=== PATIENT | male | born 1975 | race Caucasian/White ===

== ENCOUNTER 2018-04-19 14:07 | Emergency (ER) | payer OTHER ==
[~2018-04-19] VITALS: Ht 180.3 cm; Wt 105.0 kg
[~2018-04-19 14:07] MED LIST: ALLO300T2 PO; AMIT100 PO; AMLO5 PO; ATOR40TA PO; CLON.5 PO; DICL75 PO; FLUT1SPR9; INDO50 PO; MAGN400T19 PO; REST30CA PO; SERT-132 PO; TOPA100T8 PO
[2018-04-19 14:21] VITALS: BP 130/102; PULSE 101; RESP 24; TEMP 99.2; O2SAT 98
--- NOTE | 2018-04-19 14:29 | PD ---
HPI Chief Complaint: Laceration/Skin Injury Time Seen by Provider: 14:10 Travel History International Travel<30 days: No Contact w/Intl Traveler<30days: No History of Present Illness HPI 43y male presents emergency department via [facility] for laceration to his left forearm that he self-inflicted just prior to arrival. He says that he cuts normally and he used a different knife today and did not mean to cut himself as deep as he did. Patient states that he is a cutter and frequently has self- inflicted wounds but denies any suicidal homicidal ideations. He denies any previous suicide attempts. He admits to history of PTSD and takes Paxil. In addition, he says he takes lovastatin and amlodipine on a daily basis. PFSH Past Medical History ADHD: Yes Bipolar Disorder: Yes Anxiety: Yes Depression: Yes Cardiovascular Problems: Yes High Cholesterol: Yes Chest Pain: Yes (ADMITTED [facility] 04/29-05/02/12) Diabetes: No Diminished Hearing: No Endocrine: Yes Gout: Yes Herniated Disk: Yes (lumbar spine) Hypertension: Yes Psychiatric: Yes Sleep Apnea: Yes Thyroid Disease: Yes (HYPOTHYROID) Social History Alcohol Use: Yes (alcoholic recovered) Tobacco Use: No Substance Use: Yes Allergies-Medications (Allergen,Severity, Reaction): Coded Allergies: No Known Allergies (Verified Adverse Reaction, Unknown, 04/19/18) Reported Meds & Prescriptions Reported Meds & Active Scripts Active Reported Lovastatin 40 Mg Tab 40 Mg PO DAILY Paroxetine (Paroxetine HCl) 30 Mg Tab 30 Mg PO DAILY Amlodipine (Amlodipine Besylate) 5 Mg Tab 5 Mg PO DAILY Review of Systems Except as stated in HPI: all other systems reviewed are Neg Physical Exam Narrative GENERAL: Well developed,, well-nourished, anxious SKIN: Focused skin assessment warm/dry. Left vqlhanprjo-2-7 cm laceration 5mm deep dried blood over clothes, hands, and legs. HEAD: Atraumatic. Normocephalic. EYES: Pupils equal and round. No scleral icterus. No injection or drainage. ENT: No nasal bleeding or discharge. Mucous membranes pink and moist. NECK: Trachea midline. No JVD. CARDIOVASCULAR: Regular rate and rhythm. No murmur appreciated. RESPIRATORY: No accessory muscle use. Clear to auscultation. Breath sounds equal bilaterally. MUSCULOSKELETAL: No obvious deformities. No clubbing. No cyanosis. No edema. NEUROLOGICAL: Awake and alert. No obvious cranial nerve deficits. Motor grossly within normal limits. Normal speech. PSYCHIATRIC: Appropriate mood and affect; insight and judgment normal. Pt appears to be ashamed. Data Data Last Documented VS Vital Signs Date Time Temp Pulse Resp B/P (MAP) Pulse Ox O2 Delivery O2 Flow Rate FiO2 04/19/18 14:21 99.2 101 24 130/102 (111) 98 Orders Orders Complete Blood Count With Diff (04/19/18 14:19) Lidocai-Epi 2%-1:100,000 Inj (Xylocaine- (04/19/18 14:30) Comprehensive Metabolic Panel (04/19/18 14:34) Thyroid Stimulating Hormone (04/19/18 14:34) Urinalysis - C+S If Indicated (04/19/18 14:34) Electrocardiogram (04/19/18 14:34) Oximetry (04/19/18 14:34) Iv Access Insert/Monitor (04/19/18 14:34) Ecg Monitoring (04/19/18 14:34) Psych Screen (04/19/18 14:34) Drug Screen, Random Urine (04/19/18 14:34) Alcohol (Ethanol) (04/19/18 14:34) Salicylates (Aspirin) (04/19/18 14:34) Tylenol (Acetaminophen) (04/19/18 14:34) Diet Regular Basic (04/19/18 Dinner) Labs Laboratory Tests Test 04/19/18 15:12 White Blood Count 10.6 TH/MM3 Red Blood Count 4.38 MIL/MM3 Hemoglobin 14.0 GM/DL Hematocrit 40.7 % Mean Corpuscular Volume 93.0 FL Mean Corpuscular Hemoglobin 31.9 PG Mean Corpuscular Hemoglobin Concent 34.3 % Red Cell Distribution Width 14.5 % Platelet Count 324 TH/MM3 Mean Platelet Volume 8.0 FL Neutrophils (%) (Auto) 72.2 % Lymphocytes (%) (Auto) 19.6 % Monocytes (%) (Auto) 7.3 % Eosinophils (%) (Auto) 0.3 % Basophils (%) (Auto) 0.6 % Neutrophils # (Auto) 7.6 TH/MM3 Lymphocytes # (Auto) 2.1 TH/MM3 Monocytes # (Auto) 0.8 TH/MM3 Eosinophils # (Auto) 0.0 TH/MM3 Basophils # (Auto) 0.1 TH/MM3 CBC Comment DIFF FINAL Differential Comment Blood Urea Nitrogen 8 MG/DL Creatinine 1.05 MG/DL Random Glucose 106 MG/DL Total Protein 7.3 GM/DL Albumin 3.9 GM/DL Calcium Level 8.3 MG/DL Alkaline Phosphatase 80 U/L Aspartate Amino Transf (AST/SGOT) 182 U/L Alanine Aminotransferase (ALT/SGPT) 174 U/L Total Bilirubin 0.6 MG/DL Sodium Level 144 MEQ/L Potassium Level 3.8 MEQ/L Chloride Level 105 MEQ/L Carbon Dioxide Level 26.6 MEQ/L Anion Gap 12 MEQ/L Estimat Glomerular Filtration Rate 76 ML/MIN Thyroid Stimulating Hormone 3rd Gen 0.996 uIU/ML Salicylates Level LESS THAN 1.7 MG/DL Acetaminophen Level LESS THAN 2.0 MCG/ML Ethyl Alcohol Level 174 MG/DL [facility] Medical Decision Making Medical Screen Exam Complete: Yes Emergency Medical Condition: Yes Differential Diagnosis Left forearm laceration, avulsion, abrasion Narrative Course 43y male presents emergency department via [facility] for laceration to his left forearm that he self-inflicted just prior to arrival. He says that he cuts normally and to use a different knife today and did not mean to cut himself as deep as he did. Patient states that he is a cutter and frequently has self- inflicted wounds but denies any suicidal homicidal ideations. He denies any previous suicide attempts. He admits to history of PTSD and takes Paxil. In addition, he says he takes lovastatin and amlodipine on a daily basis. As I was evaluating the patient and the depth of the laceration, the [employer] [employer] presented a Delgado act indicating that patient admitted to taking more medication than he was prescribed. I confronted the patient regarding this and patient adamantly denied the allegation. Vital signs stable. Laceration repair completed. No evidence of deep tissue or neurological involvement. He remained pleasant however somewhat easily agitated with discussing the Delgado act. He believes that he was inappropriately Delgado acted. Patient is medically cleared to see psych. His urinalysis is pending. Recommend Keflex for abx prophylaxis. Procedures Procedure Narrative LACERATION LOCATION: Left forearm LENGTH: 4 cm NUMBER OF STITCHES/RACHEL: 8 REPAIR: The area of the laceration was prepped with Betadine and sterilely draped. The laceration was infiltrated with 1% lidocaine with epinephrine. The wound was copiously irrigated and explored without evidence of foreign body, tendon injury or neurovascular injury. The wound was closed using 4-0 Ethilon, 4-0 Vicryl. This was a double layer repair. A sterile dressing was applied. The patient was advised to keep the dressing clean and dry. Patient tolerated the procedure well. Diagnosis Primary Impression: Laceration of left forearm Qualified Codes: S51.812A - Laceration without foreign body of left forearm, initial encounter Referrals: Primary Care Physician Psychiatrist Additional Instructions: Follow up with your primary care physician within 2-3 days. Keep area clean and dry for 24 hours. After 24 hours, you may bathe as normal but dry the area thoroughly. You may use [id number] triple antibiotic ointments for your injury daily. Change dressings daily. If bleeding starts, apply pressure and elevate the area. If you developed increased redness, swelling, or pain return to the emergency department as this could be a sign of infection. Suture removal and 10 days Condition: Stable Elyse Jamil April 19, 2018 14:29
[2018-04-19] MEDS ORDERED: LIDOCAINE 2%/EPINEPHrine 1:100,000 30ML MDV INFIL ONE (14:30)
[2018-04-19] MEDS ORDERED: LOVA40TA PO (14:42)
[2018-04-19] MEDS ORDERED: AMLO5TAB2 PO (14:42)
[2018-04-19] MEDS ORDERED: PARO30TA2 PO (14:42)
[2018-04-19 15:29] LABS: AUTOMATED NEUTROPHIL # 7.6 TH/MM3 (1.8-7.7); BASOPHIL # 0.1 TH/MM3 (0-0.2); BASOPHIL % 0.6 % (0.0-2.0); EOSINOPHIL % 0.3 % (0.0-4.0); HEMATOCRIT 40.7 % (39.0-51.0); LYMPH % 19.6 % (9.0-44.0); LYMPHOCYTE # 2.1 TH/MM3 (1.0-4.8); MEAN CORPUSCULAR HEMOGLOBIN 31.9 PG (27.0-34.0); MEAN CORPUSCULAR HGB CONC 34.3 % (32.0-36.0); MONO % 7.3 % (0.0-8.0); MONOCYTE # 0.8 TH/MM3 (0-0.9); NEUT % 72.2 % (16.0-70.0); PLATELET COUNT 324 TH/MM3 (150-450); RED BLOOD COUNT 4.38 MIL/MM3 (4.50-5.90); RED CELL DISTRIBUTION WIDTH 14.5 % (11.6-17.2); WHITE BLOOD COUNT 10.6 TH/MM3 (4.0-11.0)
[2018-04-19 15:43] LABS: ALBUMIN 3.9 GM/DL (3.4-5.0); ALT (GPT) 174 U/L (12-78); AST (GOT) 182 U/L (15-37); BICARBONATE 26.6 MEQ/L (21.0-32.0); BLOOD UREA NITROGEN 8 MG/DL (7-18); CALCIUM 8.3 MG/DL (8.5-10.1); CHLORIDE 105 MEQ/L (98-107); CREATININE 1.05 MG/DL (0.60-1.30); GLOMERULAR FILTRATION RATE 76 ML/MIN (>89); GLUCOSE,RANDOM 106 MG/DL (74-106); SODIUM (NA) 144 MEQ/L (136-145)
[2018-04-19 15:46] LABS: ACETAMINOPHEN LESS THAN 2.0 MCG/ML (10.0-30.0)
[2018-04-19 15:53] LABS: ALKALINE PHOSPHATASE 80 U/L (45-117); TOTAL BILIRUBIN ADULT 0.6 MG/DL (0.2-1.0); TOTAL PROTEIN 7.3 GM/DL (6.4-8.2)
[2018-04-19] MEDS ORDERED: CEPH-460 PO (18:48)
[2018-04-20] MEDS ORDERED: IBUPROFEN 800 MG TAB PO ONE (00:15)
[2018-04-20 00:22] VITALS: BP 147/85; PULSE 86; RESP 17; O2SAT 100
[2018-04-20 06:14] VITALS: BP 159/88; PULSE 68; RESP 17; O2SAT 99
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
--- NOTE | 2018-04-20 09:03 | PD ---
Data Data Last Documented VS Vital Signs Date Time Temp Pulse Resp B/P (MAP) Pulse Ox O2 Delivery O2 Flow Rate FiO2 04/20/18 09:01 04/20/18 06:14 68 17 99 Room Air 04/19/18 14:21 99.2 Orders Orders Complete Blood Count With Diff (04/19/18 14:19) Lidocai-Epi 2%-1:100,000 Inj (Xylocaine- (04/19/18 14:30) Comprehensive Metabolic Panel (04/19/18 14:34) Thyroid Stimulating Hormone (04/19/18 14:34) Urinalysis - C+S If Indicated (04/19/18 14:34) Electrocardiogram (04/19/18 14:34) Oximetry (04/19/18 14:34) Iv Access Insert/Monitor (04/19/18 14:34) Ecg Monitoring (04/19/18 14:34) Psych Screen (04/19/18 14:34) Drug Screen, Random Urine (04/19/18 14:34) Alcohol (Ethanol) (04/19/18 14:34) Salicylates (Aspirin) (04/19/18 14:34) Tylenol (Acetaminophen) (04/19/18 14:34) Diet Regular Basic (04/19/18 Dinner) Ibuprofen (Motrin) (04/20/18 00:15) Diet Regular Basic (04/20/18 Breakfast) Labs Laboratory Tests Test 04/19/18 15:12 White Blood Count 10.6 TH/MM3 Red Blood Count 4.38 MIL/MM3 Hemoglobin 14.0 GM/DL Hematocrit 40.7 % Mean Corpuscular Volume 93.0 FL Mean Corpuscular Hemoglobin 31.9 PG Mean Corpuscular Hemoglobin Concent 34.3 % Red Cell Distribution Width 14.5 % Platelet Count 324 TH/MM3 Mean Platelet Volume 8.0 FL Neutrophils (%) (Auto) 72.2 % Lymphocytes (%) (Auto) 19.6 % Monocytes (%) (Auto) 7.3 % Eosinophils (%) (Auto) 0.3 % Basophils (%) (Auto) 0.6 % Neutrophils # (Auto) 7.6 TH/MM3 Lymphocytes # (Auto) 2.1 TH/MM3 Monocytes # (Auto) 0.8 TH/MM3 Eosinophils # (Auto) 0.0 TH/MM3 Basophils # (Auto) 0.1 TH/MM3 CBC Comment DIFF FINAL Differential Comment Blood Urea Nitrogen 8 MG/DL Creatinine 1.05 MG/DL Random Glucose 106 MG/DL Total Protein 7.3 GM/DL Albumin 3.9 GM/DL Calcium Level 8.3 MG/DL Alkaline Phosphatase 80 U/L Aspartate Amino Transf (AST/SGOT) 182 U/L Alanine Aminotransferase (ALT/SGPT) 174 U/L Total Bilirubin 0.6 MG/DL Sodium Level 144 MEQ/L Potassium Level 3.8 MEQ/L Chloride Level 105 MEQ/L Carbon Dioxide Level 26.6 MEQ/L Anion Gap 12 MEQ/L Estimat Glomerular Filtration Rate 76 ML/MIN Thyroid Stimulating Hormone 3rd Gen 0.996 uIU/ML Salicylates Level LESS THAN 1.7 MG/DL Acetaminophen Level LESS THAN 2.0 MCG/ML Ethyl Alcohol Level 174 MG/DL MDM Medical Record Reviewed: Yes Supervised Visit with TOO: No Narrative Course See previous providers notes. This patient has been medically cleared by the previous provider. Psychiatry is cleared this patient. There are no medical issues that would warrant further hospitalization. Stable for discharge. Diagnosis Primary Impression: Laceration of left forearm Qualified Codes: S51.812A - Laceration without foreign body of left forearm, initial encounter Additional Impression: ADJUSTMENT DISORDER Referrals: [facility] (Out patient) as needed Medication Management [facility] as needed Primary Care Physician Psychiatrist Patient Instructions: General Instructions Departure Forms: Work Release, Enter return to work date: April 21, 2018 Tests/Procedures Additional Instruction: Follow up with your primary care physician within 2-3 days. Keep area clean and dry for 24 hours. After 24 hours, you may bathe as normal but dry the area thoroughly. You may use [id number] triple antibiotic ointments for your injury daily. Change dressings daily. If bleeding starts, apply pressure and elevate the area. If you developed increased redness, swelling, or pain return to the emergency department as this could be a sign of infection. Suture removal and 10 days PRAZOSIN (MINIPRESS) FOR NIGHTMARES Scripts Cephalexin (Keflex) 500 Mg Cap 500 MG PO Q12H for Infection for 5 Days, #10 CAP 0 Refills Prov: MacMara Fabio MCKNIGHT 04/19/18 Disposition: 01 DISCHARGE HOME Condition: Stable Theo Ye April 20, 2018 09:03
[2018-04-20] MEDS ORDERED: CEPH-460 PO (09:16)
--- NOTE | 2018-04-20 14:14 | EKG ---
Date Performed: 04/19/2018 Time Performed: 14:47:06 PTAGE: 43 years EKG: SINUS TACHYCARDIA NONSPECIFIC T-WAVE ABNORMALITY ABNORMAL RHYTHM ECG PREVIOUS TRACING : 04/28/2013 18.32 Since the previous tracing, no significant change noted DOCTOR: Mike Barcenas Interpretating Date/Time 04/20/2018 14:06:37
== END 2018-04-20 09:21 | disposition home or self-care (01) ==
LOC: NEPD 14:07 → NEPJ 04-20 09:21
DX: S51.812A Laceration without foreign body of left forearm, initial encounter (principal); X78.1XXA Intentional self-harm by knife, initial encounter; F10.229 Alcohol dependence with intoxication, unspecified; Y90.6 Blood alcohol level of 120-199 mg/100 ml; R94.31 Abnormal electrocardiogram [ECG] [EKG]; F43.12 Post-traumatic stress disorder, chronic; F31.9 Bipolar disorder, unspecified; E03.9 Hypothyroidism, unspecified; I10 Essential (primary) hypertension
CPT/HCPCS: 12032; 80053; 80307; 84443; 85025; 93005

== ENCOUNTER 2018-05-08 21:08 | Emergency (ER) | payer BC ==
[~2018-05-08 21:08] MED LIST changes: -ALLO300T2 PO; -AMIT100 PO; -AMLO5 PO; +AMLO5TAB2 PO; -ATOR40TA PO; +CEPH-460 PO; -CLON.5 PO; -DICL75 PO; -FLUT1SPR9; -INDO50 PO; +LOVA40TA PO; -MAGN400T19 PO; +PARO30TA2 PO; -REST30CA PO; -SERT-132 PO; -TOPA100T8 PO
[2018-05-08 21:29] VITALS: BP 162/95; PULSE 111; RESP 18; TEMP 98.4; O2SAT 96
[2018-05-08] MEDS ORDERED: ALUMINUM/MAGNESIUM/SIMETH 30 ML CUP PO ONE (22:15)
[2018-05-08] MEDS ORDERED: ATROPINE/SCOPOLAM/HYOSCYAM/PB ELIXIR 10 ML CUP PO ONE (22:15)
[2018-05-08] MEDS ORDERED: PANTOPRAZOLE SOD 40 MG DELAYED RELEASE TAB PO ONE (22:15)
--- NOTE | 2018-05-08 22:21 | PD ---
HPI Chief Complaint: Chest Pain Time Seen by Provider: 21:58 Travel History International Travel<30 days: No Contact w/Intl Traveler<30days: No Traveled to known affect area: No History of Present Illness HPI 43-year-old male complains of chest pain. Patient states that the chest pain started tonight. Patient states that the pain started about an hour and a half prior to arrival. Patient stated pain is sharp pain substernally without radiation. Patient denies palpitation nausea diaphoresis. Patient denies any fever chills coughing congestion. Patient complains of headache and photophobia. Patient denies any neck pain. Patient states that chest pains not associated with deep breathing or exertion. PFSH Past Medical History ADHD: Yes Bipolar Disorder: Yes Anxiety: Yes Depression: Yes Cardiovascular Problems: Yes High Cholesterol: Yes [place] Pain: Yes [place] [facility] [place] Diabetes: No Diminished Hearing: No Endocrine: Yes Gout: Yes Herniated Disk: Yes (lumbar spine) Hypertension: Yes Psychiatric: Yes Immunizations Current: Yes Sleep Apnea: Yes Thyroid Disease: Yes (HYPOTHYROID) Past Surgical History Surgical History: No Previous Surgery Social History Alcohol Use: Yes Tobacco Use: No Substance Use: No Allergies-Medications (Allergen,Severity, Reaction): Coded Allergies: No Known Allergies (Verified Adverse Reaction, Unknown, 05/08/18) Reported Meds & Prescriptions Reported Meds & Active Scripts Active Keflex (Cephalexin) 500 Mg Cap 500 Mg PO Q12H 5 Days Reported Lovastatin 40 Mg Tab 40 Mg PO DAILY Paroxetine (Paroxetine HCl) 30 Mg Tab 30 Mg PO DAILY Amlodipine (Amlodipine Besylate) 5 Mg Tab 5 Mg PO DAILY Review of Systems General / Constitutional: No: Fever Eyes: No: Visual changes HENT: No: Headaches Cardiovascular: Positive: Chest Pain or Discomfort Respiratory: No: Shortness of Breath Gastrointestinal: No: Abdominal Pain Genitourinary: No: Dysuria Musculoskeletal: No: Pain Skin: No Rash Neurologic: No: Weakness Psychiatric: No: Depression Endocrine: No: Polydipsia Hematologic/Lymphatic: No: Easy Bruising Physical Exam Narrative GENERAL: Well-nourished, well-developed patient. SKIN: Focused skin assessment warm/dry. HEAD: Normocephalic. EYES: No scleral icterus. No injection or drainage. NECK: Supple, trachea midline. No JVD or lymphadenopathy. CARDIOVASCULAR: Regular rate and rhythm without murmurs, gallops, or rubs. RESPIRATORY: Breath sounds equal bilaterally. No accessory muscle use. GASTROINTESTINAL: Abdomen soft, nondistended. Patient has mild to moderate tenderness on palpation epigastric area. No rebound tenderness. No mass. MUSCULOSKELETAL: No cyanosis, or edema. BACK: Nontender without obvious deformity. No CVA tenderness. Neurologic exam normal. Data Data Last Documented VS Vital Signs Date Time Temp Pulse Resp B/P (MAP) Pulse Ox O2 Delivery O2 Flow Rate FiO2 05/08/18 22:50 98 Room Air 05/08/18 21:29 98.4 111 18 162/95 (117) Orders Orders Electrocardiogram (05/08/18 22:08) Complete Blood Count With Diff (05/08/18 22:08) Comprehensive Metabolic Panel (05/08/18 22:08) Creatine Kinase (Cpk) (05/08/18 22:08) Troponin I (05/08/18 22:08) Prothrombin Time / Inr (Pt) (05/08/18 22:08) Act Partial Throm Time (Ptt) (05/08/18 22:08) Lipase (05/08/18 22:08) Chest, Single Ap (05/08/18 22:08) Iv Access Insert/Monitor (05/08/18 22:08) Ecg Monitoring (05/08/18 22:08) Oximetry (05/08/18 22:08) Pantoprazole (Protonix) (05/08/18 22:15) Al-Mag Hy-Si 40-40-4 Mg/Ml Liq (Mag-Al P (05/08/18 22:15) Opgvu-Ygyimu-Cinwcj-Pb Liq ( Liq (05/08/18 22:15) Ed Discharge Order (05/08/18 23:42) Labs Laboratory Tests Test 05/08/18 22:30 White Blood Count 8.8 TH/MM3 Red Blood Count 4.53 MIL/MM3 Hemoglobin 14.9 GM/DL Hematocrit 41.8 % Mean Corpuscular Volume 92.1 FL Mean Corpuscular Hemoglobin 32.9 PG Mean Corpuscular Hemoglobin Concent 35.7 % Red Cell Distribution Width 14.5 % Platelet Count 399 TH/MM3 Mean Platelet Volume 8.2 FL Neutrophils (%) (Auto) 67.0 % Lymphocytes (%) (Auto) 23.5 % Monocytes (%) (Auto) 7.8 % Eosinophils (%) (Auto) 0.6 % Basophils (%) (Auto) 1.1 % Neutrophils # (Auto) 5.9 TH/MM3 Lymphocytes # (Auto) 2.1 TH/MM3 Monocytes # (Auto) 0.7 TH/MM3 Eosinophils # (Auto) 0.1 TH/MM3 Basophils # (Auto) 0.1 TH/MM3 CBC Comment DIFF FINAL Differential Comment Prothrombin Time 9.7 SEC Prothromb Time International Ratio 1.0 RATIO Activated Partial Thromboplast Time 24.1 SEC Blood Urea Nitrogen 10 MG/DL Creatinine 0.99 MG/DL Random Glucose 146 MG/DL Total Protein 8.0 GM/DL Albumin 3.9 GM/DL Calcium Level 8.8 MG/DL Alkaline Phosphatase 113 U/L Aspartate Amino Transf (AST/SGOT) 52 U/L Alanine Aminotransferase (ALT/SGPT) 109 U/L Total Bilirubin 0.4 MG/DL Sodium Level 139 MEQ/L Potassium Level 3.1 MEQ/L Chloride Level 101 MEQ/L Carbon Dioxide Level 24.0 MEQ/L Anion Gap 14 MEQ/L Estimat Glomerular Filtration Rate 82 ML/MIN Total Creatine Kinase 110 U/L Troponin I LESS THAN 0.02 NG/ML Lipase 153 U/L MDM Medical Decision Making Medical Screen Exam Complete: Yes Emergency Medical Condition: Yes Medical Record Reviewed: Yes Interpretation(s) Last Impressions Chest X-Ray 05/08/18 3010 Signed Impressions: CONCLUSION: No active disease. 23:33 PM. CBC within normal limits. Potassium 3.1. Cardiac enzymes are normal. Differential Diagnosis Differential diagnosis including atypical chest pain, angina, ND, PE, pneumothorax. Narrative Course 43-year-old male with chest pain. Cardiac cath done 3 years ago with minimal disease. Protonix 40 mg p.o. given. Maalox 30 cc p.o. 10 cc p.o. given. Patient was advised to be admitted to the chest pain center. Patient refused admission. Patient wants to go home. Diagnosis Primary Impression: Chest pain Qualified Codes: R07.9 - Chest pain, unspecified Patient Instructions: General Instructions Additional Instructions: Protonix as directed. Follow-up with personal physician. Return immediately if increasing chest pain shortness of breath. Follow-up with information technology coordinator. Med/Other Pt SpecificInfo: Prescription(s) given Scripts Pantoprazole (Protonix) 40 Mg Tab 40 MG PO DAILY for Reflux, #30 TAB 0 Refills Prov: Danilo Florez MD 05/08/18 Disposition: 01 DISCHARGE HOME Condition: Stable Danilo Florez MD May 08, 2018 22:21
--- NOTE | 2018-05-08 22:30 | RADRPT ---
EXAM DATE: 05/08/2018 10:26 PM EDT AGE/SEX: 43 years / Male INDICATIONS: Chest pain. CLINICAL DATA: This is the patient's initial encounter. Patient reports that signs and symptoms have been present for 1 day and indicates a pain score of 6/10. MEDICAL/SURGICAL HISTORY: Hypertension. Hypercholesterolemia. Fatty liver disease. Gout. PTSD. . Cardiac cath. COMPARISON: [facility] [place], 04/28/2013. . FINDINGS: A single AP view of the chest demonstrates the lungs to be symmetrically aerated without evidence of mass, infiltrate or effusion. The cardiomediastinal contours are unremarkable. Osseous structures a re intact. CONCLUSION: No active disease. Electronically signed by: Bird Espino MD 05/08/2018 10:28 PM EDT
[2018-05-08 22:50] VITALS: O2SAT 98
[2018-05-08 23:12] LABS: PROTHROMBIN TIME - PATIENT 9.7 SEC (9.8-11.6)
[2018-05-08 23:15] LABS: AUTOMATED NEUTROPHIL # 5.9 TH/MM3 (1.8-7.7); BASOPHIL # 0.1 TH/MM3 (0-0.2); BASOPHIL % 1.1 % (0.0-2.0); EOSINOPHIL # 0.1 TH/MM3 (0-0.4); EOSINOPHIL % 0.6 % (0.0-4.0); HEMATOCRIT 41.8 % (39.0-51.0); HEMOGLOBIN 14.9 GM/DL (13.0-17.0); LYMPH % 23.5 % (9.0-44.0); LYMPHOCYTE # 2.1 TH/MM3 (1.0-4.8); MEAN CELL VOLUME 92.1 FL (80.0-100.0); MEAN CORPUSCULAR HEMOGLOBIN 32.9 PG (27.0-34.0); MEAN CORPUSCULAR HGB CONC 35.7 % (32.0-36.0); MEAN PLATELET VOLUME 8.2 FL (7.0-11.0); MONO % 7.8 % (0.0-8.0); MONOCYTE # 0.7 TH/MM3 (0-0.9); PLATELET COUNT 399 TH/MM3 (150-450); RED BLOOD COUNT 4.53 MIL/MM3 (4.50-5.90); RED CELL DISTRIBUTION WIDTH 14.5 % (11.6-17.2); WHITE BLOOD COUNT 8.8 TH/MM3 (4.0-11.0)
[2018-05-08 23:30] LABS: ALBUMIN 3.9 GM/DL (3.4-5.0); ALKALINE PHOSPHATASE 113 U/L (45-117); ALT (GPT) 109 U/L (12-78); AST (GOT) 52 U/L (15-37); BLOOD UREA NITROGEN 10 MG/DL (7-18); CALCIUM 8.8 MG/DL (8.5-10.1); CHLORIDE 101 MEQ/L (98-107); CREATININE 0.99 MG/DL (0.60-1.30); GLOMERULAR FILTRATION RATE 82 ML/MIN (>89); GLUCOSE,RANDOM 146 MG/DL (74-106); SODIUM (NA) 139 MEQ/L (136-145); TOTAL BILIRUBIN ADULT 0.4 MG/DL (0.2-1.0); TROPONIN I LESS THAN 0.02 NG/ML (0.02-0.05)
[2018-05-08] MEDS ORDERED: PROT40TA PO (23:45)
--- NOTE | 2018-05-09 14:09 | EKG ---
Date Performed: 05/08/2018 Time Performed: 23:00:05 PTAGE: 43 years EKG: Sinus rhythm NONSPECIFIC ST & T-WAVE ABNORMALITY BORDERLINE ECG PREVIOUS TRACING : 04/19/2018 14.47 Since the previous tracing, no significant change noted DOCTOR: Mike Barcenas Interpretating Date/Time 05/09/2018 14:08:48
== END 2018-05-09 | disposition home or self-care (01) ==
LOC: NEPD 21:08 → NEDA 23:42 → UNDOADMOB 23:42
DX: R07.9 Chest pain, unspecified (principal); R51 Headache; H53.149 Visual discomfort, unspecified; F90.9 Attention-deficit hyperactivity disorder, unspecified type; F31.9 Bipolar disorder, unspecified; F41.9 Anxiety disorder, unspecified; E78.00 Pure hypercholesterolemia, unspecified; M10.9 Gout, unspecified; G47.30 Sleep apnea, unspecified; E03.9 Hypothyroidism, unspecified; Z79.899 Other long term (current) drug therapy
CPT/HCPCS: 71045; 80053; 82550; 83690; 84484; 85025; 85610; 85730; 93005; 99285